=== PATIENT | male | born 1985 | race Native Hawaiian/Other Pacific Islander ===

== ENCOUNTER 2018-01-29 19:21 | Emergency (ER) | payer OTHER ==
[~2018-01-29] VITALS: Ht 165.1 cm; Wt 77.1 kg
[2018-01-29 22:20] VITALS: BP 130/80; TEMP 98
== END 2018-01-29 22:27 | disposition home or self-care (01) ==
LOC: ED 19:21
PROC: 2W3QX1Z Immobilization of Right Lower Leg using Splint (ICD-10-PCS; principal; 2018-01-29)
DX: M79.671 Pain in right foot (principal); S93.401A Sprain of unspecified ligament of right ankle, initial encounter; X50.1XXA Overexertion from prolonged static or awkward postures, initial encounter
CPT/HCPCS: 99282; J1885

== ENCOUNTER 2018-04-23 19:11 | Emergency (ER) | payer OTHER ==
[~2018-04-23] VITALS: Ht 165.1 cm; Wt 77.1 kg
[2018-04-23 19:32] VITALS: BP 142/92; TEMP 98.2
== END 2018-04-23 19:56 | disposition home or self-care (01) ==
LOC: ED 19:11
DX: K08.89 Other specified disorders of teeth and supporting structures (principal); S02.5XXA Fracture of tooth (traumatic), initial encounter for closed fracture
CPT/HCPCS: 99281